=== PATIENT | female | born 1980 ===

== ENCOUNTER 2022-01-28 16:56 | Emergency (ER) | payer MEDICAID ==
[~2022-01-28] VITALS: Ht 170.2 cm; Wt 81.8 kg
[~2022-01-28 16:56] MED LIST: LIDOcaine 1% W/epiNEPHrine 1:100,000 20ml vial ONE
[2022-01-28 17:03] VITALS: BP 153/97
[2022-01-28] MEDS ORDERED: LORazepam 2 mg/ml vial IM ONE (19:40)
[2022-01-28] MEDS ORDERED: SULF1TAB49 PO (20:37)
[2022-01-28] MEDS ORDERED: sulfamethoxazole/trimethoprim DS (800/160mg) tablet PO ONE (20:40)
== END 2022-01-28 21:04 | disposition home or self-care (01) ==
LOC: ER 16:57
DX: S62.605A Fracture of unspecified phalanx of left ring finger, initial encounter for closed fracture (principal); S61.215A Laceration without foreign body of left ring finger without damage to nail, initial encounter; S67.195A Crushing injury of left ring finger, initial encounter; Z79.2 Long term (current) use of antibiotics; X58.XXXA Exposure to other specified factors, initial encounter; Y93.89 Activity, other specified; Y92.89 Other specified places as the place of occurrence of the external cause; Y99.8 Other external cause status
CPT/HCPCS: 12001; 73140; 96372; 99283; J2060; J3490

== ENCOUNTER 2022-01-30 16:29 | Emergency (ER) | payer MEDICAID ==
[~2022-01-30] VITALS: Ht 170.2 cm; Wt 81.8 kg
[~2022-01-30 16:29] MED LIST changes: -LIDOcaine 1% W/epiNEPHrine 1:100,000 20ml vial ONE; +SULF1TAB49 PO
[2022-01-30 16:35] VITALS: BP 159/100
[2022-01-30] MEDS ORDERED: sulfamethoxazole/trimethoprim DS (800/160mg) tablet PO ONE (17:15)
== END 2022-01-30 17:35 | disposition home or self-care (01) ==
LOC: ER 16:30
DX: S61.211D Laceration without foreign body of left index finger without damage to nail, subsequent encounter (principal); Z79.2 Long term (current) use of antibiotics; X58.XXXD Exposure to other specified factors, subsequent encounter
CPT/HCPCS: 99283; 99285

== ENCOUNTER 2022-11-24 19:41 | Emergency (ER) | payer MEDICAID ==
[~2022-11-24] VITALS: Ht 170.2 cm; Wt 81.8 kg
[2022-11-24 20:08] VITALS: BP 164/102
[2022-11-24] MEDS ORDERED: METH4TAB3 PO (21:05)
[2022-11-24] MEDS ORDERED: triamcinolone acetonide 40mg/ml inj IM ONE (21:05)
[2022-11-24] MEDS ORDERED: CEPH250T PO (21:05)
== END 2022-11-24 21:25 | disposition home or self-care (01) ==
LOC: ER 19:42
DX: L23.7 Allergic contact dermatitis due to plants, except food (principal)
CPT/HCPCS: 96372; 99283; J3301